=== PATIENT | male | born 1945 | race Caucasian/White ===

== ENCOUNTER 2018-12-16 16:55 | Emergency (ER) | payer MEDICARE ==
--- NOTE | 2018-12-16 18:26 | EDM.PDOC ---
ED HPI GENERAL MEDICAL PROBLEM - General Chief Complaint: Lower Extremity Injury/Pain Stated Complaint: Fall; left hip pain Time Seen by Provider: 12/16/18 17:06 Source of Information: Reports: Patient History Limitations: Reports: No Limitations - History of Present Illness INITIAL COMMENTS - FREE TEXT/NARRATIVE: Patient fell on ice just prior to arrival. Has complaint of left hip pain. Able to ambulate, antalgic gate. Has been recently diagnosed with left sided DVT involving lower portion of leg. Just started Xarelto today. Denies other pain/injuries. No numbness/tingling/weakness. No back pain/SOB/rib pain. Did not hit head. No neck pain. No lacerations/abrasions. Left Hip Pain Score (Numeric/FACES): 4 - Related Data Allergies Allergy/AdvReac Type Severity Reaction Status Date / Time No Known Allergies Allergy Verified 12/16/18 16:57 Home Meds: Home Meds Rivaroxaban [Xarelto] 15 mg PO BID 12/16/18 [History] Past Medical History Cardiovascular History: Reports: Blood Clots/VTE/DVT Endocrine/Metabolic History: Reports: Obesity/BMI 30+ Social & Family History - Tobacco Use Smoking Status *Q: Never Smoker - Caffeine Use Caffeine Use: Reports: Coffee - Alcohol Use Alcohol Use History: No - Recreational Drug Use Recreational Drug Use: No Drug Use in Last 12 Months: No Review of Systems - Review of Systems Review Of Systems: ROS reveals no pertinent complaints other than HPI. ED EXAM, GENERAL - Physical Exam Exam: See Below Exam Limited By: No Limitations General Appearance: Alert, WD/WN, No Apparent Distress Eye Exam: Bilateral Eye: EOMI, PERRL Ears: Normal External Exam Nose: Normal Inspection Throat/Mouth: Normal Inspection, Normal Lips, Normal Voice, No Airway Compromise Head: Atraumatic, Normocephalic Neck: Supple, Non-Tender Respiratory/Chest: No Respiratory Distress, Lungs Clear, Normal Breath Sounds, No Accessory Muscle Use, Chest Non-Tender Cardiovascular: Normal Peripheral Pulses, Regular Rate, Rhythm, No Murmur Peripheral Pulses: 2+: Radial (L), Radial (R), Dorsalis Pedis (L), Dorsalis Pedis (R) GI/Abdominal: Soft, Non-Tender (Male) Exam: Deferred Rectal (Males) Exam: Deferred Back Exam: No: CVA Tenderness (L), CVA Tenderness (R), Muscle Spasm, Paraspinal Tenderness, Vertebral Tenderness Extremities: Normal Range of Motion, Other (left leg slightly swollen compared to right. Patient says it has been like that due to the DVT. Improving per patient. Tenderness with palpation over right hip area, no shortening or rotation noted. Some tenderness with passive ROM. ) Neurological: Alert, Oriented, Normal Cognition, No Motor/Sensory Deficits Psychiatric: Normal Affect, Normal Mood Skin Exam: Warm, Dry, Intact Course - Vital Signs Last Recorded V/S: Last Vital Signs Temp Pulse 80 12/16/18 18:24 Resp 16 12/16/18 18:24 BP 147/78 H 12/16/18 18:24 Pulse Ox 100 12/16/18 18:24 - Orders/Labs/Meds Orders: Active Orders 24 hr Category Date Time Status Hip Min 2V or 3V Lt [CR] Stat Exams 12/16/18 17:47 Taken Pelvis 1V or 2V [CR] Stat Exams 12/16/18 17:20 Ordered - Radiology Interpretation Free Text/Narrative:: No obvious fracture noted when reviewing left hip and pelvis films - Re-Assessments/Exams Free Text/Narrative Re-Assessment/Exam: 12/16/18 18:34 No obvious fracture noted. Precautions reviewed. Patient noted to be able to bear weight and ambulate reasonably well at time of discharge. To follow up as needed. Also to observe for any signs of DVT related issues such as sudden SOB/chest pain. Departure - Departure Time of Disposition: 18:25 Disposition: Home, Self-Care 01 Condition: Good Clinical Impression: Contusion, hip Qualifiers: Encounter type: initial encounter Laterality: left Qualified Code(s): S70.02XA - Contusion of left hip, initial encounter - Discharge Information *PRESCRIPTION DRUG MONITORING PROGRAM REVIEWED*: Not Applicable *COPY OF PRESCRIPTION DRUG MONITORING REPORT IN PATIENT DU: Not Applicable Instructions: Contusion, [id number] Referrals: Tanvir Hopper PA [Primary Care Provider] - Forms: ED Department Discharge Additional Instructions: Ice, Tylenol as needed. Follow up if you have worsening problems. - My Orders Last 24 Hours: My Active Orders 12/16/18 17:20 Pelvis 1V or 2V [CR] Stat 12/16/18 17:47 Hip Min 2V or 3V Lt [CR] Stat - Assessment/Plan Last 24 Hours: My Active Orders 12/16/18 17:20 Pelvis 1V or 2V [CR] Stat 12/16/18 17:47 Hip Min 2V or 3V Lt [CR] Stat
== END 2018-12-16 18:35 | disposition home or self-care (01) ==
LOC: LL.ED 16:55
DX: S70.02XA Contusion of left hip, initial encounter (principal); Z79.01 Long term (current) use of anticoagulants; W00.0XXA Fall on same level due to ice and snow, initial encounter
CPT/HCPCS: 72170; 99283